=== PATIENT | male | born 1985 ===

== ENCOUNTER 2017-12-14 09:13 | Outpatient (CLI) | payer OTHER ==
[~2017-12-14] VITALS: Ht 193 cm; Wt 120.2 kg
== END 2017-12-14 09:25 | disposition home or self-care (01) ==
LOC: OFIC 805 09:13
DX: H70.11 Chronic mastoiditis, right ear (principal); R42 Dizziness and giddiness

== ENCOUNTER 2018-06-02 09:35 | Emergency (ER) | payer OTHER ==
[~2018-06-02] VITALS: Ht 190.5 cm; Wt 122.5 kg
== END 2018-06-02 15:46 | disposition home or self-care (01) ==
LOC: ER 09:35
DX: R10.32 Left lower quadrant pain (principal)